=== PATIENT | female | born 1985 | race Hispanic/Latino ===

== ENCOUNTER 2018-03-21 19:11 | Emergency (ER) | payer BC, OTHER ==
[~2018-03-21] VITALS: Ht 162.6 cm; Wt 70.8 kg
== END 2018-03-21 22:17 | disposition home or self-care (01) ==
LOC: FSED 19:11
DX: R10.32 Left lower quadrant pain (principal); R10.2 Pelvic and perineal pain
CPT/HCPCS: 76705; 76830; 81003; 81025; 99283